=== PATIENT | female | born 1990 | race Caucasian/White ===

== ENCOUNTER 2016-08-06 13:04 | Emergency (ER) | payer BC | END 2016-08-06 14:09 | disposition left against medical advice (07) | LOC: M ED 13:04 | DX: R51 Headache (principal); Z53.29 Procedure and treatment not carried out because of patient's decision for other reasons ==

== ENCOUNTER 2017-08-15 12:32 | Emergency (ER) | payer OTHER, BC ==
[2017-08-15] MEDS: CIPRODEX OTIC SUSP 7.5ML AD (13:00)
[2017-08-15] MEDS: AUGMENTIN 875 MG TAB PO (13:10)
[2017-08-15] MEDS: NORCO, ANEXSIA 5/325MG TABLET (HYDROcodone/ACETAMINOPHEN) PO (13:10)
== END 2017-08-15 13:30 | disposition home or self-care (01) ==
LOC: M ED 12:32
DX: H60.501 Unspecified acute noninfective otitis externa, right ear (principal); H60.11 Cellulitis of right external ear; Z91.048 Other nonmedicinal substance allergy status
CPT/HCPCS: 99282

== ENCOUNTER → 2017-10-30 | Outpatient (CLI) | payer OTHER | LOC: M RAD 13:32 | DX: N63.20 Unspecified lump in the left breast, unspecified quadrant (principal) | CPT/HCPCS: 77065 ==

== ENCOUNTER → 2018-10-07 | Outpatient (CLI) | payer OTHER ==
[~2018-10-07] MED LIST: AUGM875T28 PO; NORCOTAB PO; TRAZ-160
--- NOTE | 2018-10-07 15:02 | REP ---
LEFT ANKLE, FOUR VIEWS: There is no evidence of an acute fracture, dislocation or intrinsic bone disease. IMPRESSION: No fracture or dislocation. Electronically Signed by Howard Gaston MD 10/08/2018 09:15 A
--- NOTE | 2018-10-08 06:31 | REP ---
LEFT FOOT, FOUR VIEWS: There is no evidence of an acute fracture, dislocation or intrinsic bone disease. IMPRESSION: No fracture or dislocation. Electronically Signed by Howard Gaston MD 10/08/2018 09:15 A
== END ==
LOC: M LRY 13:10
PROVIDERS: ATTEND Physician Assistant
DX: S99.922A Unspecified injury of left foot, initial encounter (principal); Y92.9 Unspecified place or not applicable; Y99.9 Unspecified external cause status; Y93.9 Activity, unspecified; X58.XXXA Exposure to other specified factors, initial encounter